=== PATIENT | female | born 1945 | race African-American/Black ===

== ENCOUNTER 2017-08-19 08:25 | Emergency (ER) | payer MEDICARE ==
[2017-08-19 09:15] LABS: Alanine Aminotransferase 20 units/L (7-56); Albumin 4.6 g/dL (3.9-5); BUN/Creatinine Ratio 20; Blood Urea Nitrogen 10 mg/dL (7-17); Hemolysis Index 11
[2017-08-19 09:35] LABS: Basophils % (Auto) 0.6 % (0.0-1.8); Eosinophils % (Auto) 1.5 % (0.0-4.3); Hematocrit 39.9 % (30.3-42.9); Hemoglobin 13.1 gm/dl (10.1-14.3); Lymphocytes # (Auto) 0.9 K/mm3 (1.2-5.4); Lymphocytes % (Auto) 28.2 % (13.4-35.0); Mean Corpuscular HGB Conc 33 % (30-34); Mean Corpuscular Hemoglobin 30 pg (28-32); Mean Corpuscular Volume 92 fl (79-97); Monocytes # (Auto) 0.2 K/mm3 (0.0-0.8); Platelet Count 201 K/mm3 (140-440); Red Blood Count 4.34 M/mm3 (3.65-5.03); Red Cell Distribution Width 12.4 % (13.2-15.2)
[2017-08-19 09:58] VITALS: BP 138/90
[2017-08-19] MEDS ORDERED: NACL 0.9% 500 ML 500 ML IV ONE (10:05)
[2017-08-19] MEDS ORDERED: ZOFRAN IV ONE (10:06)
[2017-08-19] MEDS ORDERED: TYLENOL #3 PO ONE (10:06)
[2017-08-19 10:47] LABS: Bilirubin,Urine NEG (Negative); Blood,Urine SM (Negative); Color,Urine Yellow (Yellow); Mucus,Urine FEW /HPF; Protein,Urine <15 mg/dL mg/dL (Negative); Urobilinogen,Urine < 2.0 mg/dL (<2.0)
--- NOTE | 2017-08-19 12:13 | Emergency Department Report ---
HPI - General Chief Complaint: Nausea/Vomiting/Diarrhea Time Seen by Provider: 08/19/17 10:04 - [facility] HPI: The patient is a 71-year-old female who presents for evaluation of gastroenteritis-like symptoms. The patient reports 1 week of cramping generalized abdominal pain, exacerbated with retching, nondistended severity, and associated with nausea and multiple episodes of nonbilious nonbloody emesis. The patient denies fever, chills, night sweats, chest pain, dyspnea, cough, hemoptysis, blood in the stool, dark tarry stool, dysuria, hematuria, flank pain, genital discharge, inability to pass flatus. ED Past Medical Hx - Social History Smoking Status: Never Smoker Substance Use Type: None - Medications Home Medications: Home Medications Medication Instructions Recorded Confirmed Last Taken Type Acetaminophen [Tylenol] 1,000 mg PO Q6HR #30 tablet 08/19/17 Unknown Rx Ondansetron [Zofran TAB] 4 mg PO Q8HR PRN #20 tablet 08/19/17 Unknown Rx ED Review of Systems ROS: Stated complaint: Diarrhea, vomitting blood Other details as noted in HPI Constitutional: denies: fever ENT: denies: throat or neck pain Respiratory: denies: cough, shortness of breath Cardiovascular: denies: chest pain Endocrine: denies unexplained weight loss or gain Gastrointestinal: reports: abdominal pain, nausea, vomiting, diarhea Genitourinary: denies: dysuria Musculoskeletal: denies: leg swelling Skin: denies: rash Neurological: denies: headache Hematological/Lymphatic: denies: easy bleeding or easy bruising Psych: denies sadness or hopelessness Physical Exam - Physical Exam Vital Signs: Vital Signs 08/19/17 08/19/17 08:31 09:56 Temperature 98.6 F 98.2 F Pulse Rate 70 60 Respiratory 16 18 Rate Blood Pressure 127/85 Blood Pressure 138/90 [Left] O2 Sat by Pulse 100 97 Oximetry Physical Exam: General: well-nourished, well-developed, no acute distress Head: Normocephalic, atraumatic Eyes: normal sclera ENT: Mucous membranes are pale and dry Neck: No neck stiffness, no cervical adenopathy Respiratory: Breath sounds equal bilaterally, no wheezing, rales, or rhonchi Cardio: S1 and S2 present, no murmurs, rubs, gallops, capillary refill is delayed Abdomen: Normoactive bowel sounds, soft abdomen, no rigidity, no guarding or rebound tenderness, periumbilical tenderness to palpation present, Musc: No pitting edema Skin: No rash Neuro: no facial drooping, normal speech Psych: Normal affect ED Course Vital Signs 08/19/17 08/19/17 08:31 09:56 Temperature 98.6 F 98.2 F Pulse Rate 70 60 Respiratory 16 18 Rate Blood Pressure 127/85 Blood Pressure 138/90 [Left] O2 Sat by Pulse 100 97 Oximetry ED Medical Decision Making - Lab Data Result diagrams: 08/19/17 08:45 08/19/17 08:45 - Medical Decision Making The patient was seen and examined by myself. The patient is placed on a potline monitor and continuous pulse ox. On initial evaluation, the patient was found to be in no distress. Evaluation orders are placed. IV access is established and the patient is given 1 L normal saline fluid bolus and Zofran for nausea, and IV analgesic for pain. Lab results were non-concerning including WBC, hemoglobin, hematocrit, electrolytes, renal function, LFTs, lipase, and urinalysis. The patient was reevaluated and reported that their symptoms were markedly improved. The patient is stable for discharge with outpatient follow-up. The patient is given follow-up and return instructions. The patient expressed understanding and agreed with the plan. The patient is discharged in stable condition. Critical care attestation.: If time is entered above; I have spent that time in minutes in the direct care of this critically ill patient, excluding procedure time. ED Disposition Clinical Impression: Dehydration, Abdominal pain, acute, periumbilical, Nausea and vomiting in adult Disposition: DC-01 TO HOME OR SELFCARE Is pt being admited?: No Does the pt Need Aspirin: No Condition: Stable Instructions: Gastroenteritis (ED), Acute Nausea and Vomiting (ED), Food Poisoning (ED) Referrals: PRIMARY CARE, [Primary Care Provider] - 3-5 Days Time of Disposition: 10:56
== END 2017-08-19 12:16 | disposition home or self-care (01) ==
LOC: ED 08:25
DX: E86.0 Dehydration (principal); R11.2 Nausea with vomiting, unspecified; R10.33 Periumbilical pain
CPT/HCPCS: 36415; 80053; 81001; 85025; 96374; 99284; J2405; J7040